=== PATIENT | female | born 1955 | race Caucasian/White ===

== ENCOUNTER → 2020-09-04 13:38 | Outpatient (CLI) | payer OTHER, SELFPAY ==
--- NOTE | 2020-09-04 13:44 | DI.RAD.S_ITS ---
P none ROCEDURE: XR LUMBAR SPINE 2-3V INDICATIONS: Hydronephrosis TECHNIQUE: 3 views of the lumbar spine were acquired. COMPARISON: None. FINDINGS: Bones: No fracture. Levocurvature, centered at L1-L2. Multilevel degenerative endplate sclerosis and spurring. Diffuse facet arthropathy. Diffuse moderate narrowing of the lumbar disc spaces. Soft tissues: Overlying bowel gas pattern is normal. No suspicious soft tissue calcifications. Scattered vascular calcifications seen in the aorta. IMPRESSION: Levoscoliosis. Diffuse lumbar spondylosis and facet arthropathy. Dictated by: Kit Carson M.D. on 09/04/2020 at 16:02 Approved by: Kit Carson M.D. on 09/04/2020 at 16:04
== END ==
PROVIDERS: PCP Physician Assistant; Referring Provider Physician Assistant; Visit Provider Physician Assistant
DX: M54.16 Radiculopathy, lumbar region (principal); M41.86 Other forms of scoliosis, lumbar region
CPT/HCPCS: 72100

== ENCOUNTER → 2020-10-18 18:04 | Outpatient (CLI) | payer OTHER, SELFPAY ==
--- NOTE | 2020-10-18 18:06 | DI.MRI.S_ITS ---
PROCEDURE: MR LUMBAR SPINE WO CON INDICATIONS: RADICULOPATHY LUMBAR REGION TECHNIQUE: Noncontrast sagittal T1 spin echo and T2 fast echo, sagittal STIR, axial T1 and T2 fast spin echo through the lumbar spine. In cases with scoliosis, additional coronal T2 fast spin echo may be performed. COMPARISON: [facility], CT, ABDOMEN/PELVIS WITH CONTRAST, 10/17/2009, 18:19. FINDINGS: Image quality: Excellent. Alignment and Curvature: There is trace retrolisthesis of L5 on S1. Bone Marrow: Marrow demonstrates a marked heterogeneous appearance on both T1 and T2 throughout the visualized thoracic, lumbar and sacral spine, as well as pelvic bones. It is relatively homogeneous on STIR. No acute vertebral body compression fractures. Spinal Cord: Conus medullaris terminates at the L1 level. Visualized cord demonstrates normal signal and size. Paraspinous Soft Tissues: No paravertebral masses. Discs: Mild desiccation is present at L3-4, L5-S1, minimal throughout the remainder of the lumbar spine. L1-L2: No disc bulge, spinal stenosis or foraminal narrowing. L2-L3: No disc bulge or spinal stenosis. Minimal left foraminal narrowing with facet and ligamentum flavum hypertrophy. Minimal epidural lipomatosis. L3-L4: Minimal disc bulge including a right foraminal protrusion. There is mild spinal stenosis. [id number] right and mild left foraminal narrowing with facet and ligamentum flavum hypertrophy. L4-L5: Mild disc bulge with minimal spinal stenosis. Mild left foraminal narrowing with facet and ligamentum flavum hypertrophy. L5-S1: Mild disc bulge with minimal canal narrowing. Mild bilateral foraminal narrowing, left greater than right. IMPRESSION: 1. Multilevel disc bulges. 2. Overall mild to moderate foraminal narrowing most notable at L3-4 secondary to protrusion with contributing affective facet/ligamentum flavum arthropathy. 3. Overall minimal to mild streak canal narrowing predominantly secondary to disc bulge with contributing affective facet/ligamentum flavum arthropathy. 4. Diffuse heterogeneous appearance of the marrow as above. While this could be secondary to fatty marrow conversion, malignancy cannot be definitively excluded particularly given the changes of the pelvic bones. Bone scan or MRI with contrast is recommended for further evaluation. Dictated by: Ivory Andrew M.D. on 10/21/2020 at 13:59 Approved by: Ivory Andrew M.D. on 10/21/2020 at 14:15
== END ==
PROVIDERS: PCP Physician Assistant; Referring Provider Physician Assistant; Visit Provider Physician Assistant
DX: M54.16 Radiculopathy, lumbar region (principal); M51.26 Other intervertebral disc displacement, lumbar region; M48.061 Spinal stenosis, lumbar region without neurogenic claudication
CPT/HCPCS: 72148

== ENCOUNTER → 2020-10-25 15:11 | Outpatient (CLI) | payer OTHER, SELFPAY ==
--- NOTE | 2020-10-25 15:14 | DI.MG.S_ITS ---
BILATERAL DIGITAL SCREENING MAMMOGRAM 3D/2D WITH CAD: 10/25/2020 CLINICAL: Routine screening. Comparison is made to exams dated: 04/21/2013 mammogram, 11/26/2009 mammogram, 11/09/2008 mammogram, and 05/27/2009 mammogram - [facility]. The tissue of both breasts is heterogeneously dense. This may lower the sensitivity of mammography. Current study was also evaluated with a Computer Aided Detection (CAD) system. There is a biopsy clip in the left breast. No significant masses, calcifications, or other findings are seen in either breast. There has been no significant interval change. IMPRESSION: NEGATIVE There is no mammographic evidence of malignancy. A 1 year screening mammogram is recommended. This exam was interpreted at Station ID: [id number]. NOTE: For mammograms, a report in lay terms will be sent to the patient. Approximately 15% of breast malignancies will not be visualized mammographically. In the management of a palpable breast mass, a negative mammogram must not discourage biopsy of a clinically suspicious lesion. Electronically Signed By: Antelmo alfredo/madina:10/25/2020 17:11:34 letter sent: Normal Exam ACR BI-RADS Category 1: Negative [id number]
== END ==
PROVIDERS: PCP Physician Assistant; Referring Provider Physician Assistant; Visit Provider Physician Assistant
DX: Z12.31 Encounter for screening mammogram for malignant neoplasm of breast (principal); Z13.820 Encounter for screening for osteoporosis; M85.851 Other specified disorders of bone density and structure, right thigh; F10.20 Alcohol dependence, uncomplicated; Z78.0 Asymptomatic menopausal state; F17.200 Nicotine dependence, unspecified, uncomplicated
CPT/HCPCS: 77063; 77067; 77080

== ENCOUNTER → 2020-10-30 10:57 | Outpatient (CLI) | payer OTHER, SELFPAY ==
[2020-10-30 11:59] LABS: Add Manual Diff / Slide Review NO; Basophils Absolute Auto 100 /uL (0-100); Basophils Percent Auto 0.8 % (0-2); Eosinophils Absolute Auto 0 /uL (0-450); Eosinophils Percent Auto 0.2 % (2-4); Hematocrit 44.6 % (36-46); Hemoglobin 15.1 g/dL (12.0-16.0); Lymphocytes Absolute Auto 900 /uL (1100-4500); Lymphocytes Percent Auto 7.9 % (25-40); Mean Corpuscular HGB Conc 33.8 % (30-36); Mean Corpuscular Hemoglobin 36.4 PG (26-34); Mean Corpuscular Volume 107.8 fL (80-100); Monocytes Absolute Auto 300 /uL (0-900); Monocytes Percent Auto 2.2 % (3-14); Neutrophils Absolute Auto 10500 /uL (1500-7000); Neutrophils Percent Auto 88.9 % (50-75); Platelet Count 217 X10^3/uL (150-400); Red Blood Cell Count 4.14 X10^6/uL (4.0-5.2); Red Cell Distribution Width 13.9 % (11.6-14.8); White Blood Cell Count 11.9 X10^3/uL (4.5-11.0)
[2020-10-30 12:11] LABS: Alanine Aminotransferase 33 IU/L (<35); Albumin 4.5 g/dL (3.5-5.0); Albumin Globulin Ratio 1.4 (1.0-2.8); Alkaline Phosphatase 88 U/L (38-126); Aspartate Aminotransferase 26 IU/L (14-36); BUN Creatinine Ratio 18.2 (6-22); Bilirubin Total 0.6 mg/dL (0.2-1.3); Blood Urea Nitrogen 12 mg/dL (7-17); Calcium 11.1 mg/dL (8.4-10.2); Carbon Dioxide 24 mmol/L (22-32); Chloride 108 mmol/L (98-107); Cholesterol 292 mg/dL (140-199); Estimated Glomerular Filt Rate > 60.0 mL/min (>60); Globulin 3.2 g/dL (1.7-4.1); Glucose 143 mg/dL (80-110); HDL Cholesterol 71 mg/dL (40-60); HEMOLYSIS < 15 (0-50); LDL Cholesterol Calculated 182 mg/dL (<100); Potassium 4.4 mmol/L (3.4-5.1); Sodium 144 mmol/L (137-145); Total Protein 7.7 g/dL (6.3-8.2); Triglycerides 196 mg/dL (35-150)
[2020-10-30 12:40] LABS: TSH w/ Reflex to FT4 1.54 uIU/mL (0.47-4.68)
== END ==
PROVIDERS: PCP Physician Assistant; Referring Provider Physician Assistant; Visit Provider Physician Assistant
DX: E83.52 Hypercalcemia (principal)
CPT/HCPCS: 36415; 80053; 80061; 84443; 85025

== ENCOUNTER → 2020-11-04 14:13 | Outpatient (CLI) | payer OTHER, SELFPAY ==
[2020-11-04 15:15] LABS: Add Manual Diff / Slide Review NO; Basophils Absolute Auto 0 /uL (0-100); Basophils Percent Auto 0.5 % (0-2); Eosinophils Absolute Auto 0 /uL (0-450); Hematocrit 41.6 % (36-46); Lymphocytes Absolute Auto 700 /uL (1100-4500); Lymphocytes Percent Auto 8.4 % (25-40); Mean Corpuscular HGB Conc 33.7 % (30-36); Mean Corpuscular Volume 106.9 fL (80-100); Monocytes Absolute Auto 200 /uL (0-900); Monocytes Percent Auto 2.6 % (3-14); Neutrophils Absolute Auto 7400 /uL (1500-7000); Neutrophils Percent Auto 88.5 % (50-75); Platelet Count 234 X10^3/uL (150-400); Red Blood Cell Count 3.89 X10^6/uL (4.0-5.2); Red Cell Distribution Width 14.3 % (11.6-14.8); White Blood Cell Count 8.4 X10^3/uL (4.5-11.0)
[2020-11-04 15:48] LABS: Alanine Aminotransferase 28 IU/L (<35); Albumin 4.2 g/dL (3.5-5.0); Albumin Globulin Ratio 1.4 (1.0-2.8); Alkaline Phosphatase 79 U/L (38-126); Aspartate Aminotransferase 28 IU/L (14-36); BUN Creatinine Ratio 23.8 (6-22); Bilirubin Total 0.4 mg/dL (0.2-1.3); Blood Urea Nitrogen 15 mg/dL (7-17); Calcium 10.7 mg/dL (8.4-10.2); Carbon Dioxide 23 mmol/L (22-32); Chloride 108 mmol/L (98-107); Cholesterol 274 mg/dL (140-199); Estimated Glomerular Filt Rate > 60.0 mL/min (>60); Glucose 160 mg/dL (80-110); HDL Cholesterol 79 mg/dL (40-60); HEMOLYSIS < 15 (0-50); LDL Cholesterol Calculated 172 mg/dL (<100); Potassium 4.1 mmol/L (3.4-5.1); Sodium 141 mmol/L (137-145); Total Protein 7.2 g/dL (6.3-8.2); Triglycerides 117 mg/dL (35-150)
[2020-11-04 17:08] LABS: TSH w/ Reflex to FT4 0.64 uIU/mL (0.47-4.68)
[2020-11-05 11:36] LABS: Calcium 10.2 mg/dL (8.7-10.3); Parathyroid Hormone, Intact 95 pg/mL (15-65)
[2020-11-07 17:03] LABS: Hemoglobin A1C% w Est Avg Glu 5.8 % (4.0-6.0)
[2020-11-07 17:16] LABS: Vitamin D 25 Hydroxy (D3) 34.3 ng/mL (30.0-100.0)
== END ==
PROVIDERS: PCP Physician Assistant; Referring Provider Physician Assistant; Visit Provider Physician Assistant
DX: E83.52 Hypercalcemia (principal)
CPT/HCPCS: 36415; 80053; 80061; 82306; 82310; 83036; 83970; 84443; 85025

== ENCOUNTER → 2020-11-07 16:52 | Outpatient (ROUT) | payer OTHER, SELFPAY ==
[2020-11-15 18:17] LABS: 1,25-Dihydroxy, Vitamin D-2 <10 pg/mL (.)
== END ==
PROVIDERS: PCP Physician Assistant; Visit Provider Physician Assistant
DX: N25.81 Secondary hyperparathyroidism of renal origin (principal); R73.09 Other abnormal glucose
CPT/HCPCS: 82652

== ENCOUNTER → 2020-12-10 12:54 | Outpatient (CLI) | payer OTHER, MEDICAID, SELFPAY ==
[2020-12-10 14:44] LABS: Add Manual Diff / Slide Review NO; Basophils Absolute Auto 100 /uL (0-100); Eosinophils Absolute Auto 100 /uL (0-450); Eosinophils Percent Auto 1.4 % (2-4); Hematocrit 43.6 % (36-46); Hemoglobin 14.5 g/dL (12.0-16.0); Lymphocytes Absolute Auto 1600 /uL (1100-4500); Lymphocytes Percent Auto 24.6 % (25-40); Mean Corpuscular HGB Conc 33.3 % (30-36); Monocytes Absolute Auto 900 /uL (0-900); Monocytes Percent Auto 13.3 % (3-14); Neutrophils Absolute Auto 3900 /uL (1500-7000); Neutrophils Percent Auto 59.7 % (50-75); Platelet Count 207 X10^3/uL (150-400); Red Blood Cell Count 4.03 X10^6/uL (4.0-5.2); Red Cell Distribution Width 14.6 % (11.6-14.8); White Blood Cell Count 6.6 X10^3/uL (4.5-11.0)
[2020-12-10 15:06] LABS: Alanine Aminotransferase 17 IU/L (<35); Albumin 4.2 g/dL (3.5-5.0); Albumin Globulin Ratio 1.3 (1.0-2.8); Alkaline Phosphatase 109 U/L (38-126); Aspartate Aminotransferase 26 IU/L (14-36); BUN Creatinine Ratio 20.5 (6-22); Bilirubin Total 0.4 mg/dL (0.2-1.3); Blood Urea Nitrogen 15 mg/dL (7-17); Calcium 11.1 mg/dL (8.4-10.2); Carbon Dioxide 22 mmol/L (22-32); Chloride 110 mmol/L (98-107); Estimated Glomerular Filt Rate > 60.0 mL/min (>60); Globulin 3.2 g/dL (1.7-4.1); Glucose 113 mg/dL (80-110); HEMOLYSIS < 15 (0-50); Sodium 140 mmol/L (137-145); Total Protein 7.4 g/dL (6.3-8.2)
[2020-12-11 08:42] LABS: Parathyroid Hormone Int 55 pg/mL (15-65)
[2020-12-11 12:42] LABS: Ionized Calcium 5.8 mg/dL (4.5-5.6)
== END ==
PROVIDERS: PCP Physician Assistant; Referring Provider Physician Assistant; Visit Provider Physician Assistant
DX: D72.810 Lymphocytopenia (principal); E34.9 Endocrine disorder, unspecified; E83.52 Hypercalcemia
CPT/HCPCS: 36415; 80053; 82330; 83970; 85025